=== PATIENT | female | born 1945 | race Caucasian/White ===

== ENCOUNTER 2024-02-14 07:20 | Day surgery (SDC) | payer MEDICARE ==
[2024-02-13 10:09] VITALS: BMI 26.9
[2024-02-14] MEDS ORDERED: PROPOFOL 20 ML ONE (09:25)
[2024-02-14] MEDS ORDERED: Ondansetron PF 4 MG/2 ML Vial ONE (10:05)
[2024-02-14] MEDS ORDERED: Dexamethasone 4 mg/ml Vial ONE (10:05)
[2024-02-14] MEDS ORDERED: Lidocaine 1% PF 5 ML VIAL ONE (10:05)
[2024-02-14] MEDS ORDERED: Dexamethasone 20 MG/5 ML VIAL ONE (10:14)
[2024-02-14] MEDS ORDERED: CEFAZOLIN 2 GM VIAL ONE (10:15)
[2024-02-14] MEDS ORDERED: Bupivacaine 0.5% 10 ML VIAL ONE (10:15)
[2024-02-14] MEDS ORDERED: PHENYLEPHRINE-NS 100 MCG/ML 10 ML SYRINGE ONE ×2 (10:23→10:41)
[2024-02-14] MEDS ORDERED: Glycopyrrolate 0.2 MG/ML 5 ML SYRINGE ONE (11:06)
[2024-02-14] MEDS ORDERED: HYDROcodone/Acetaminophen 5/325 mg Tablet ONE (12:45)
== END 2024-02-14 13:00 | disposition home or self-care (01) ==
LOC: CSHSDC 07:20
PROVIDERS: ATTEND Podiatrist Foot & Ankle Surgery
PROC: 0SGM0JZ Fusion of Right Metatarsal-Phalangeal Joint with Synthetic Substitute, Open Approach (ICD-10-PCS; principal; 2024-02-14)
DX: M21.611 Bunion of right foot (principal); M25.511 Pain in right shoulder; I12.9 Hypertensive chronic kidney disease with stage 1 through stage 4 chronic kidney disease, or unspecified chronic kidney disease; N18.30 Chronic kidney disease, stage 3 unspecified; E78.5 Hyperlipidemia, unspecified; E03.9 Hypothyroidism, unspecified; Z90.710 Acquired absence of both cervix and uterus; Z98.41 Cataract extraction status, right eye; Z79.890 Hormone replacement therapy; Z79.899 Other long term (current) drug therapy
CPT/HCPCS: 28297; 73620; J1100; J2405; J2704; C1713; C1769; C1776; J3490